=== PATIENT | male | born 1960 | race African-American/Black ===

== ENCOUNTER 2018-11-21 16:19 | Emergency (ER) | payer OTHER ==
[~2018-11-21] VITALS: Ht 182.9 cm; Wt 108.9 kg
--- NOTE | 2018-11-21 16:30 | NUR ---
patient presented to the ER c/o left ankle pain. on room air, breathing evenly and unlabored. Ambulatory with steady gait. Kept comfortable, will continue to monitor accordingly.
[2018-11-21] MEDS ORDERED: IBUPROFEN 600 MG TABLET PO ONE ×2 (17:00→17:03)
[2018-11-21 18:07] VITALS: BP 145/82
--- NOTE | 2018-11-21 18:09 | NUR ---
Patient discharged to home in stable condition. Written and verbal after care instructions given. Patient verbalizes understanding of instruction.
== END 2018-11-21 18:08 | disposition home or self-care (01) ==
LOC: ER 16:25
DX: R60.0 Localized edema (principal); M19.072 Primary osteoarthritis, left ankle and foot; I10 Essential (primary) hypertension; E03.9 Hypothyroidism, unspecified; Z88.0 Allergy status to penicillin
CPT/HCPCS: 73610-TC

== ENCOUNTER 2019-09-27 17:26 | Emergency (ER) | payer OTHER ==
[~2019-09-27] VITALS: Ht 185.4 cm; Wt 104.3 kg
[2019-09-27 18:06] VITALS: BP 172/90
--- NOTE | 2019-09-27 19:52 | NUR ---
Patient discharged to home in stable condition. Written and verbal after care instructions given. Patient verbalizes understanding of instruction and RX. vss.
== END 2019-09-27 19:53 | disposition home or self-care (01) ==
LOC: ER 17:32
DX: M25.572 Pain in left ankle and joints of left foot (principal); I10 Essential (primary) hypertension; E03.9 Hypothyroidism, unspecified; Z88.0 Allergy status to penicillin
CPT/HCPCS: 73610-TC